=== PATIENT | male | born 1970 | race Asian ===

== ENCOUNTER 2017-07-17 11:36 | Emergency (ER) | payer OTHER ==
[2017-07-17 11:41] VITALS: RESP 18
--- NOTE | 2017-07-17 11:51 | CPEKG ---
Heart Rate: 51 RR Interval: 1176 P-R Interval: 156 QRSD Interval: 92 QT Interval: 432 QTC Interval: 398 P [place]: 56 QRS [place]: 18 T Wave [place]: 23 EKG Severity - NORMAL ECG - EKG Impression: SINUS RHYTHM Electronically Signed By: Delvin Nassar 21-Jul-2017 07:41:09
[2017-07-17 12:14] LABS: % IMMATURE GRANULYOCYTES 0.2 % (0.0-1.1); ABSOLUTE IMMATURE GRANULOCYTES 0.01 10^3/uL (0.00-0.10); ADD DIFF? NO; ADD MORPH? NO; ADD SCAN? NO; ATYPICAL LYMPHOCYTE FLAG 10 (0-99); FRAGMENT RBC FLAG 0 (0-99); HEMATOCRIT 47.1 % (40.0-51.0); LEFT SHIFT FLG 0 (0-99); LIPEMIA HEMOLYSIS FLAG 90 (0-99); MEAN CELL HEMOGLOBIN 30.5 pg (27.9-34.1); MEAN CELL VOLUME 89.9 fL (81.5-99.8); MEAN PLATELET VOLUME 10.4 fL (8.7-11.7); PLATELET CLUMPS FLAG 0 (0-99); PLATELET COUNT 198 10^3/uL (150-400); RED BLOOD CELL COUNT 5.24 10^6/uL (4.40-6.38); RED CELL DISTRIBUTION WIDTH 12.9 % (11.5-15.2)
[2017-07-17 12:22] LABS: ANION GAP 11 mEq/L (8-16); CALCIUM 9.2 mg/dL (8.5-10.4); CARBON DIOXIDE 23 mEq/l (22-31); CHLORIDE 105 mEq/L (97-110); CREATININE 0.9 mg/dL (0.7-1.3); GLOMERULAR FILTRATION RATE > 60; GLUCOSE 84 mg/dL (70-100); POTASSIUM 4.3 mEq/L (3.5-5.2); SODIUM 139 mEq/L (134-144)
[2017-07-17 12:33] LABS: TROPONIN I < 0.012 ng/mL (0.000-0.034)
--- NOTE | 2017-07-17 12:50 | EDPHY ---
HPI/HX/ROS/PE/MDM Narrative: CHIEF COMPLAINT: Resolved chest pain HPI: The patient is a 47 y/o male arriving with his for evaluation of a single self-resolving episode of chest pain Friday morning. 2 days ago. His pain began after eating and was located along his lower chest and aggravated by breathing in. It resolved spontaneously and has not recurred. He denies any current pain or symptoms. His doctor's office recommended coming into the ED for evaluation yesterday and did not evaluate him. No history of cardiac disease or family history of cardiac disease. REVIEW OF SYSTEMS: Aside from elements discussed in the HPI, a comprehensive 10-point review of systems was reviewed and is negative. PMH: Denies FAMILY HISTORY: Mother of stroke 2 years ago, hypercholesterolemia in family SOCIAL HISTORY: Daughter at bedside. From [place]. PCP is VARNISH THINNER at [facility] PHYSICAL EXAM: General:Patient is alert, in no acute distress. ENT:Eyes are normal to inspection. ENT inspection normal. Neck: Normal inspection. Full range of motion. Respiratory:No respiratory distress. Breath sounds normal bilaterally. Cardiovascular: Regular rate and rhythm. Strong peripheral pulses. Normal cap refill. Abdomen:The abdomen is nontender to palpation. There are no peritoneal signs. Back: Normal to inspection. No tenderness to palpation. Skin: Normal color. No rash. Warm and dry. Extremities: Normal appearance. Full range of motion. Neuro: Oriented x3. Normal motor function. Normal sensory function. ED Course: Plan for IV, labs including troponin, EKG, and chest x-ray. The 12 lead EKG was interpreted by myself. Sinus rhythm rate 51. See hard copy and/or "tracemaster" electronic copy for interpretation. Chest x-ray negative. Labs unremarkable. I reassessed patient and discussed work up. I offered admission or outpatient follow up. He is comfortable following up at the [facility] in the next week. Strict return precautions given. He and his agree with this plan. - Data Points Imaging: I viewed and interpreted images myself Laboratory Results: Laboratory Results 07/17/17 11:55 07/17/17 11:55 07/17/17 07/17/17 11:55 11:55 WBC 4.61 10^3/uL 10^3/uL (3.80-9.50) RBC 5.24 10^6/uL 10^6/uL (4.40-6.38) Hgb 16.0 g/dL g/dL (13.7-17.5) Hct 47.1 % % (40.0-51.0) MCV 89.9 fL fL (81.5-99.8) MCH 30.5 pg pg (27.9-34.1) MCHC 34.0 g/dL g/dL (32.4-36.7) RDW 12.9 % % (11.5-15.2) Plt Count 198 10^3/uL 10^3/uL (150-400) MPV 10.4 fL fL (8.7-11.7) Neut % (Auto) 51.0 % % (39.3-74.2) Lymph % (Auto) 33.2 % % (15.0-45.0) [place] % (Auto) 8.2 % % (4.5-13.0) Eos % (Auto) 6.1 % % (0.6-7.6) Baso % (Auto) 1.3 % % (0.3-1.7) Nucleat RBC Rel Count 0.0 % % (0.0-0.2) Absolute Neuts (auto) 2.35 10^3/uL 10^3/uL (1.70-6.50) Absolute Lymphs (auto) 1.53 10^3/uL 10^3/uL (1.00-3.00) Absolute Monos (auto) 0.38 10^3/uL 10^3/uL (0.30-0.80) Absolute Eos (auto) 0.28 10^3/uL 10^3/uL (0.03-0.40) Absolute Basos (auto) 0.06 10^3/uL 10^3/uL (0.02-0.10) Absolute Nucleated RBC 0.00 10^3/uL 10^3/uL (0-0.01) Immature Gran % 0.2 % % (0.0-1.1) Immature Gran # 0.01 10^3/uL 10^3/uL (0.00-0.10) Sodium 139 mEq/L mEq/L (134-144) Potassium 4.3 mEq/L mEq/L (3.5-5.2) Chloride 105 mEq/L mEq/L (97-110) Carbon Dioxide 23 mEq/l mEq/l (22-31) Anion Gap 11 mEq/L mEq/L (8-16) BUN 15 mg/dL mg/dL (7-23) Creatinine 0.9 mg/dL mg/dL (0.7-1.3) Estimated GFR > 60 Glucose 84 mg/dL mg/dL (70-100) Calcium 9.2 mg/dL mg/dL (8.5-10.4) Troponin I < 0.012 ng/mL ng/mL (0.000-0.034) General Time Seen by Provider: 07/17/17 12:16 Initial Vital Signs: Initial Vital Signs Temperature (C) 36.3 C 07/17/17 11:38 Heart Rate 59 L 07/17/17 11:38 Respiratory Rate 18 07/17/17 11:38 Blood Pressure 144/109 H 07/17/17 11:38 O2 Sat (%) 97 07/17/17 11:38 O2 Delivery Mode Room Air Allergies/Adverse Reactions: No Known Allergies Allergy (Unverified 07/17/17 11:41) Home Medications: Medication Instructions Recorded NK [No Known Home Meds] 07/17/17 Departure - Departure Disposition: Home, Routine, Self-Care Clinical Impression: Chest pain Qualifiers: Chest pain type: other chest pain Qualified Code(s): R07.89 - Other chest pain Condition: Good Instructions: Chest Pain (ED) Additional Instructions: Follow up with Dr. Moreno, legal librarian, in the next week. Return to the ED for chest pain, shortness of breath, or other worsening of condition. Referrals: NONE *PRIMARY CARE P,. [Primary Care Provider] - As per Instructions Ronak Moreno MD [Medical Doctor] - As per Instructions Report Scribed for: Bear Palencia Report Scribed by: Tiffany Brunner Date of Report: 07/17/17 Time of Report: 12:26 Physician Review and Approval Statement: Portions of this note were transcribed by an ED scribe. I personally performed the history, physical exam, and medical decision making; and confirm the accuracy of the information in the transcribed note.
[2017-07-17 13:35] VITALS: BP 121/88; PULSE 49; TEMP 97.9; O2SAT 95
== END 2017-07-17 13:34 | disposition home or self-care (01) ==
DX: R07.89 Other chest pain (principal)

== ENCOUNTER 2017-10-01 08:13 | Day surgery (SDC) | payer OTHER ==
[2017-10-01] MEDS ORDERED: fentaNYL 100 MCG/2 ML INJ IVP ONE (08:15)
[2017-10-01] MEDS ORDERED: MIDAZOLAM 2 MG/2 ML VIAL IVP ONE (08:15)
[2017-10-01] MEDS ORDERED: BENZOCAINE UNIT DOSE SPRAY HURRICAINE MM ONE (08:15)
[2017-10-01] MEDS ORDERED: NS 500 ML IV ONE (08:15)
--- NOTE | 2017-10-01 09:16 | PDANEPAE ---
ANE History of Present Illness 47 yo male with PFO seen on TTE now for MOODY. ANE Past Medical History - Cardiovascular History Hx Hypertension: No Hx Arrhythmias: No Hx Chest Pain: Yes Cardiovascular History Comment: episodes of atypical CP and SOB, possibly related to PFO. No evidence of NC. - Pulmonary History Hx COPD: No Hx Recent Upper Respiratory Infection: No Hx Oxygen in Use at Home: No Hx Sleep Apnea: No - Endocrine History Hx Diabetes: No Hypothyroid: No - Renal History Hx Renal Disorders: No - Liver History Hx Hepatic Disorders: No - GI History Hx Gastrointestinal Disorders: Yes Gastrointestinal History Comment: positive H pylori in 2013, pt does not remember any Abx treatment for it. - Surgical History Prior Surgeries: 2010 - Achilles tendon repair ANE Review of Systems Review of Systems: - Systems Constitutional: Reports: no symptoms ANE Patient History - Allergies Allergies/Adverse Reactions: No Known Allergies Allergy (Unverified 07/17/17 11:41) - Home Medications Home Medications: Fish Oil 1,000 mg Capsule 1,000 mg PO DAILY 10/01/17 [Last Taken Unknown] Vitamin B-12 PO DAILY 10/01/17 [Last Taken Unknown] Vitamin C PO DAILY 10/01/17 [Last Taken Unknown] - Anes Hx Anes Hx: slow to awaken from anesthesia - Smoking Hx Smoking Status: Never smoked Marijuana use: No - Family Anes Hx Family Anes Hx: neg - N/A ANE Labs/Vital Signs - Vital Signs Height: 175.26 cm Weight: 74.843 kg ANE Physical Exam - Airway Neck exam: FROM Mallampati Score: Class 2 Mouth exam: normal dental/mouth exam - Pulmonary Pulmonary: clear to auscultation - Cardiovascular Cardiovascular: bradycardia - ASA Status ASA Status: II ANE Anesthesia Plan Anesthesia Plan: GA with mask Total IV Anesthesia: Yes
[2017-10-01] MEDS ORDERED: PROPOFOL 200 MG/20 ML VIAL ONE (09:19)
[2017-10-01] MEDS ORDERED: LIDOCAINE 2% 5 ML SDV ONE (09:19)
--- NOTE | 2017-10-01 10:00 | PDHPUP ---
History & Physical Update H&P update statement: This history and physical update is based on an assessment of the patient which was completed after admission or registration (within 24 hours), but prior to the surgery/procedure. H&P update: H&P reviewed & patient examined, no change in patient's condition since H&P completed
[2017-10-01] MEDS ORDERED: ACETAMINOPHEN 500 MG TAB PO PRN (10:40)
[2017-10-01] MEDS ORDERED: ALBUTEROL 3 ML DEYVIAL IH PRN (10:40)
[2017-10-01] MEDS ORDERED: NALOXONE HCL 0.4 MG/ML INJ IVP PRN (10:40)
--- NOTE | 2017-10-01 10:42 | POSTANESTH ---
Post Anesthetic Evaluation Cardiovascular Status: Normal, Stable Respiratory Status: Normal, Stable Level of Consciousness/Mental Status: Can Participate in Eval, Moderately Sleepy Pain Control: Adequate, Prn Tx Ordered Nausea/Vomiting Control: Adequate, Prn Tx Ordered Complications Possibly Related to Anesthesia: None Noted
--- NOTE | 2017-10-01 11:19 | CPIP ---
[f rep st] INVASIVE CARDIAC PROCEDURE DATE OF PROCEDURE: 10/01/2017 PROCEDURE PERFORMED: Transesophageal echocardiogram. INDICATION FOR PROCEDURE: Evidence of patent foram[place] on transthoracic echo with mild to mod erate right atrial enlargement. MOODY was performed to assess interatrial septum and consideration for possible PFO closure. PROCEDURE: After informed consent was obtained for both transesophageal echocardiogram, as well as a nesthesia, the patient was brought to the [facility] procedure room. After a time-out was obtained, the pat ient had a bite block put in place. He was administered propofol. Once appropriate level of sedatio n was achieved, MOODY probe was passed without incident. Images were obtained of all cardiac structure s. There was a focus on the interatrial septum. Agitated saline contrast study was performed. Preliminary report shows small patent foramen ovale with minimally positive agitated saline contrast study, with trace tricuspid regurgitation. Normal left and right ventricular function. Please see complete MOODY report for details. The patient tolerated the procedure well. There were no postprocedure complications. PLAN: 1. Based on size of his PFO, I do not think this requires closure. 2. Will follow up with him in the office in 1 week after I have obtained the results from his overni ght oximetry study to assess for possible sleep apnea. 3. Would plan for repeat transthoracic echocardiogram in 1 year to evaluate right atrial dimensions. I have reviewed the images with the patient's . Will plan to review the images with the patient as well when he awakens from propofol sedation. /[id number]/MODL
--- NOTE | 2017-10-01 14:19 | ECHO ---
[email or web address] [address] [address] Main: [phone] Fax: Transesophageal Echocardiography Name: DONNIE EDOUARD MR#: [id number] Study Date: 10/01/2017 Study Time: 09:23 AM Date of : 1970 Age: 47 year(s) Height: ( ) Weight: ( ) BSA: Gender: Male Examination: MOODY Indication: evaulate PFO Image Quality: Adequate Contrast: I.V. dose of agitated saline Requested by: Ronak Moreno Heart Rate: Rhythm: Normal sinus rhythm BP: / Procedure Staff Display Associate: Samantha Araya Physician: Ronak Moreno Requesting Provider: MOODY Exam Details Patient Consent: Risks, alternatives of procedure explained to patient, informed consent obtained. Contrast: I.V. dose of agitated saline Conclusions: Normal size left ventricle. Normal global systolic LV function. The left atrium is normal in size. No thrombus in left appendage. The right atrium is mildly dilated. Mitral Valve: Evidence of a small functional patent foramen ovale. Measurements: Chambers Valvular Assessment AV/MV Valvular Assessment TV/PV Normal Normal Normal Name Value Range Name Value Range Name Value Range Additional Measurements: Additional Vessels Name Value Ao Ascendin.8 cm Patient: DONNIE EDOUARD Study Date: 10/01/2017 Page 1 of 2 09:23 AM Findings: Left Ventricle: Normal size left ventricle. Normal global systolic LV function. No regional wall motion abnormality. Right Ventricle: Normal size right ventricle. Normal RV function. Left Atrium: The left atrium is normal in size. An agitated saline study was performed and was positive for intracardiac shunting. No thrombus is noted in the left atrium. Left Atrial Appendage: No thrombus in left appendage. Right Atrium: The right atrium is mildly dilated. Mitral Valve: The mitral valve is normal in appearance and function. Trivial to mild mitral regurgitation. Aortic Valve: The aortic valve is normal in appearance and function. The aortic valve is tri-leaflet. There is no aortic valve regurgitation. No aortic valve stenosis is present. Tricuspid Valve: The tricuspid valve is normal in appearance and function. Trivial to mild tricuspid valve regurgitation. Pulmonic Valve: The pulmonic valve is normal in appearance and function. There is no pulmonic regurgitation seen. Aorta: The aorta is normal. Normal size sinus of valsalva measuring 3.60 cm. Normal size. AoAsc: 2.8 cm , Normal size. Pericardium: No pericardial effusion. PFO: Evidence of a small functional patent foramen ovale. l1n (No Signature Object) Patient: DONNIE EDOUARD Study Date: 10/01/2017 Page 2 of 2 09:23 AM [id number]
--- NOTE | 2017-10-01 14:19 | ECHO ---
[email or web address] [address] [address] Main: [phone] Fax: Transesophageal Echocardiography Name: DONNIE EDOUARD MR#: [id number] Study Date: 10/01/2017 Study Time: 09:23 AM Date of : 1970 Age: 47 year(s) Height: ( ) Weight: ( ) BSA: Gender: Male Examination: MOODY Indication: evaulate PFO Image Quality: Adequate Contrast: I.V. dose of agitated saline Requested by: Ronak Moreno Heart Rate: Rhythm: Normal sinus rhythm BP: / Procedure Staff Entertainment Lawyer: Samantha Araya Physician: Ronak Moreno Requesting Provider: MOODY Exam Details Patient Consent: Risks, alternatives of procedure explained to patient, informed consent obtained. Contrast: I.V. dose of agitated saline Conclusions: Normal size left ventricle. Normal global systolic LV function. The left atrium is normal in size. No thrombus in left appendage. The right atrium is mildly dilated. Mitral Valve: Evidence of a small functional patent foramen ovale. Measurements: Chambers Valvular Assessment AV/MV Valvular Assessment TV/PV Normal Normal Normal Name Value Range Name Value Range Name Value Range Additional Measurements: Additional Vessels Name Value Ao Ascendin.8 cm Patient: DONNIE EDOUARD Study Date: 10/01/2017 Page 1 of 2 09:23 AM Findings: Left Ventricle: Normal size left ventricle. Normal global systolic LV function. No regional wall motion abnormality. Right Ventricle: Normal size right ventricle. Normal RV function. Left Atrium: The left atrium is normal in size. An agitated saline study was performed and was positive for intracardiac shunting. No thrombus is noted in the left atrium. Left Atrial Appendage: No thrombus in left appendage. Right Atrium: The right atrium is mildly dilated. Mitral Valve: The mitral valve is normal in appearance and function. Trivial to mild mitral regurgitation. Aortic Valve: The aortic valve is normal in appearance and function. The aortic valve is tri-leaflet. There is no aortic valve regurgitation. No aortic valve stenosis is present. Tricuspid Valve: The tricuspid valve is normal in appearance and function. Trivial to mild tricuspid valve regurgitation. Pulmonic Valve: The pulmonic valve is normal in appearance and function. There is no pulmonic regurgitation seen. Aorta: The aorta is normal. Normal size sinus of valsalva measuring 3.60 cm. Normal size. AoAsc: 2.8 cm , Normal size. Pericardium: No pericardial effusion. PFO: Evidence of a small functional patent foramen ovale. l1n (No Signature Object) Patient: DONNIE EDOUARD Study Date: 10/01/2017 Page 2 of 2 09:23 AM [id number]
--- NOTE | 2017-10-01 14:19 | ECHO ---
[email or web address] [address] [address] Main: [phone] Fax: Transesophageal Echocardiography Name: DONNIE EDOUARD MR#: [id number] Study Date: 10/01/2017 Study Time: 09:23 AM Date of : 1970 Age: 47 year(s) Height: ( ) Weight: ( ) BSA: Gender: Male Examination: MOODY Indication: evaulate PFO Image Quality: Adequate Contrast: I.V. dose of agitated saline Requested by: Ronak Moreno Heart Rate: Rhythm: Normal sinus rhythm BP: / Procedure Staff Early Childhood Education Instructor: Samantha Araya Physician: Ronak Moreno Requesting Provider: MOODY Exam Details Patient Consent: Risks, alternatives of procedure explained to patient, informed consent obtained. Contrast: I.V. dose of agitated saline Conclusions: Normal size left ventricle. Normal global systolic LV function. The left atrium is normal in size. No thrombus in left appendage. The right atrium is mildly dilated. Mitral Valve: Evidence of a small functional patent foramen ovale. Measurements: Chambers Valvular Assessment AV/MV Valvular Assessment TV/PV Normal Normal Normal Name Value Range Name Value Range Name Value Range Additional Measurements: Additional Vessels Name Value Ao Ascendin.8 cm Patient: DONNIE EDOUARD Study Date: 10/01/2017 Page 1 of 2 09:23 AM Findings: Left Ventricle: Normal size left ventricle. Normal global systolic LV function. No regional wall motion abnormality. Right Ventricle: Normal size right ventricle. Normal RV function. Left Atrium: The left atrium is normal in size. An agitated saline study was performed and was positive for intracardiac shunting. No thrombus is noted in the left atrium. Left Atrial Appendage: No thrombus in left appendage. Right Atrium: The right atrium is mildly dilated. Mitral Valve: The mitral valve is normal in appearance and function. Trivial to mild mitral regurgitation. Aortic Valve: The aortic valve is normal in appearance and function. The aortic valve is tri-leaflet. There is no aortic valve regurgitation. No aortic valve stenosis is present. Tricuspid Valve: The tricuspid valve is normal in appearance and function. Trivial to mild tricuspid valve regurgitation. Pulmonic Valve: The pulmonic valve is normal in appearance and function. There is no pulmonic regurgitation seen. Aorta: The aorta is normal. Normal size sinus of valsalva measuring 3.60 cm. Normal size. AoAsc: 2.8 cm , Normal size. Pericardium: No pericardial effusion. PFO: Evidence of a small functional patent foramen ovale. l1n (No Signature Object) Patient: DONNIE EDOUARD Study Date: 10/01/2017 Page 2 of 2 09:23 AM [id number]
== END 2017-10-01 12:01 | disposition home or self-care (01) ==
LOC: FCATH 08:13
PROVIDERS: ATTEND Internal Medicine Cardiovascular Disease
PROC: B246ZZ4 Ultrasonography of Right and Left Heart, Transesophageal (ICD-10-PCS; principal; 2017-10-01)
DX: Q21.1 Atrial septal defect (principal); R07.89 Other chest pain; R06.02 Shortness of breath
CPT/HCPCS: J2704